=== PATIENT | female | born 1975 | race African-American/Black ===

== ENCOUNTER 2025-05-10 00:46 | Emergency (ER) | payer BC, MEDICAID ==
[2025-05-10] MEDS: diphenhydrAMINE 50 MG/ML SDV IVPUSH ONE (01:34)
[2025-05-10] MEDS: droPERidol 2.5 MG/ML SDV IVPUSH ONE (01:34)
[2025-05-10] MEDS: Sodium Chloride 0.9% 10 ML Syringe FLUSH PRN (01:39)
[2025-05-10] MEDS: Sodium Chloride 0.9% 2.5 ML Syringe FLUSH PRN (01:39)
[2025-05-10 01:58] LABS: BASOPHILS ABSOLUTE AUTO 0.03 K/uL (0.00-0.20); BASOPHILS PERCENT AUTO 0.3 % (0.0-1.0); EOSINOPHILS ABSOLUTE AUTO 0.00 K/uL (0.00-0.45); EOSINOPHILS PERCENT AUTO 0.0 % (0.0-6.0); IMMATURE GRAN ABSOLUTE AUTO 0.04 K/uL (0.00-0.05); IMMATURE GRAN PERCENT AUTO 0.4 % (0.0-0.4); LYMPHOCYTES ABSOLUTE AUTO 1.12 K/uL (1.00-4.80); LYMPHOCYTES PERCENT AUTO 12.2 % (24.0-44.0); MEAN PLATELET VOLUME 11.3 fL (9.4-12.3); MONOCYTES ABSOLUTE AUTO 1.02 K/uL (0.00-0.80); MONOCYTES PERCENT AUTO 11.1 % (0.0-8.0); NEUTROPHILS ABSOLUTE AUTO 7.00 K/uL (1.80-7.70); NEUTROPHILS PERCENT AUTO 76.0 % (41.0-71.0); NRBC ABSOLUTE 0.00 K/uL (0.00-0.02); NRBC PERCENT 0.0 /100WBC (0.0-0.2); RED BLOOD CELL COUNT 4.52 M/uL (4.10-5.30); WHITE BLOOD CELL COUNT,WBC 9.21 K/uL (3.9-11.3)
[2025-05-10 02:19] LABS: PLATELET COUNT,PLT 135 K/uL (150-400)
[2025-05-10 02:24] LABS: A/G RATIO 1.0 (0.9-1.6); ALANINE AMINOTRANSFERASE,ALT 62 IU/L (14-63); ASPARTATE AMNIOTRANSFERASE,AST 124 IU/L (15-37); BILIRUBIN TOTAL 1.1 mg/dL (0.2-1.0); BLOOD UREA NITROGEN,BUN 10 mg/dL (7.0-18.0); CARBON DIOXIDE,CO2 21.5 mmol/L (21.0-32.0); CHLORIDE,CL 90 mmol/L (98-107); CREATININE 0.9 mg/dL (0.6-1.0); EST CRCL DRUG DOSING (CG) 71.11 mL/min; ESTIMATED GFR 77 mL/min (>60); ETHANOL BLOOD MEDICAL <3 mg/dL; GLUCOSE RANDOM 178 mg/dL (74-106); POTASSIUM,K 4.0 mmol/L (3.5-5.1); PROTEIN TOTAL,TP 9.3 g/dL (6.4-8.2); SODIUM,NA 136 mmol/L (136-145)
== END 2025-05-10 03:30 | disposition home or self-care (01) ==
LOC: MW.ED 00:46
DX: K85.90 Acute pancreatitis without necrosis or infection, unspecified (principal); Z79.82 Long term (current) use of aspirin; Z79.899 Other long term (current) drug therapy
CPT/HCPCS: 36415; 74176; 80053; 80307; 83690; 83735; 85025; 96361; 96374; 96375; 99284; J1200; J1790; J2270; J7030; 99283